=== PATIENT | female | born 1995 | race Caucasian/White ===

== ENCOUNTER → 2018-11-20 | Outpatient (REF) | payer OTHER ==
[2018-11-20 18:30] LABS: HEMATOCRIT 40.2 % (36.0-47.0); HEMOGLOBIN 13.3 g/dl (12.0-15.5); MEAN CORPUSCULAR HEMOGLOBIN 31.3 pg (27.0-33.0); MEAN CORPUSCULAR HGB CONC 33.1 g/dl (32.0-36.5); MEAN CORPUSCULAR VOLUME 94.6 fl (80.0-96.0); PLATELET COUNT, AUTOMATED 192 10^3/uL (150-450); RED BLOOD COUNT 4.25 10^6/uL (4.00-5.40); WHITE BLOOD COUNT 9.7 10^3/uL (4.0-10.0)
[2018-11-20 19:08] LABS: HCG, SERUM QUANTITATIVE 32952 MIU/ML; RUBELLA IgG QUALITATIVE IMMUNE (IMMUNE)
[2018-11-20 19:19] LABS: HIV 1&2 SCREEN CENTAUR NEGATIVE (NEGATIVE)
[2018-11-22 10:42] LABS: HEPATITIS C VIRUS ABY INDEX < 0.0 INDEX (<0.8)
== END ==
LOC: M LAB REF 16:40
PROVIDERS: ATTEND Obstetrics & Gynecology
DX: O36.80X0 Pregnancy with inconclusive fetal viability, not applicable or unspecified (principal); Z32.01 Encounter for pregnancy test, result positive; Z3A.00 Weeks of gestation of pregnancy not specified

== ENCOUNTER → 2019-01-01 | Outpatient (REF) | payer OTHER ==
[2019-01-01 21:11] LABS: CHLAMYDIA DNA AMPLIFICATION NEGATIVE (NEGATIVE); GC DNA AMPLIFICATION NEGATIVE (NEGATIVE)
== END ==
LOC: M LAB REF 17:09
PROVIDERS: ATTEND Advanced Practice Midwife
DX: Z34.82 Encounter for supervision of other normal pregnancy, second trimester (principal)

== ENCOUNTER → 2019-03-14 | Outpatient (CLI) | payer MEDICAID, OTHER ==
[2019-03-14 13:42] LABS: HEMATOCRIT 39.5 % (36.0-47.0); HEMOGLOBIN 13.3 g/dl (12.0-15.5); MEAN CORPUSCULAR HEMOGLOBIN 32.4 pg (27.0-33.0); MEAN CORPUSCULAR HGB CONC 33.7 g/dl (32.0-36.5); MEAN CORPUSCULAR VOLUME 96.1 fl (80.0-96.0); PLATELET COUNT, AUTOMATED 201 10^3/uL (150-450); RED BLOOD COUNT 4.11 10^6/uL (4.00-5.40); WHITE BLOOD COUNT 14.4 10^3/uL (4.0-10.0)
[2019-03-14 14:01] LABS: CREATININE,RANDOM URINE 80.7 MG/DL; TOTAL PROTEIN,RANDOM URINE 19.7 MG/DL (0.0-12.0)
[2019-03-14 14:02] LABS: ALT/SGPT 21 U/L (12-78); BILIRUBIN,TOTAL 0.2 MG/DL (0.2-1.0); CREATININE FOR GFR 0.38 MG/DL (0.55-1.30); GLOMERULAR FILTRATION RATE > 60.0 (>60); LDH LACTATE DEHYDROGENASE 203 U/L (84-246); URIC ACID 2.5 MG/DL (2.6-6.0)
== END ==
LOC: M SMT 10:08
PROVIDERS: ATTEND Advanced Practice Midwife
DX: O09.212 Supervision of pregnancy with history of pre-term labor, second trimester (principal); O16.3 Unspecified maternal hypertension, third trimester; Z3A.00 Weeks of gestation of pregnancy not specified

== ENCOUNTER → 2019-03-21 | Outpatient (REF) | payer MEDICAID, OTHER | LOC: M LAB REF 13:08 | PROVIDERS: ATTEND Advanced Practice Midwife | DX: O23.43 Unspecified infection of urinary tract in pregnancy, third trimester (principal) ==

== ENCOUNTER → 2019-04-02 | Outpatient (REF) | payer OTHER | LOC: M LAB REF 12:57 | PROVIDERS: ATTEND Advanced Practice Midwife | DX: Z34.83 Encounter for supervision of other normal pregnancy, third trimester (principal) ==

== ENCOUNTER → 2019-05-05 | Outpatient (REF) | payer OTHER, MEDICAID | LOC: M LAB REF 12:46 | PROVIDERS: ATTEND Advanced Practice Midwife | DX: O09.213 Supervision of pregnancy with history of pre-term labor, third trimester (principal) ==

== ENCOUNTER 2019-06-04 06:21 | Inpatient (IN) | payer OTHER ==
[~2019-06-04] VITALS: Ht 154.9 cm; Wt 78.0 kg
[~2019-06-04 06:21] MED LIST: PRENTAB55 PO
[2019-06-04] MEDS ORDERED: LR 1,000 ML IV SCH ×3 (06:45→10:30)
[2019-06-04] MEDS ORDERED: LR 80 ML IV ONE (06:45)
[2019-06-04] MEDS ORDERED: BICITRA 30ML SOLN UDC PO ONE (06:45)
[2019-06-04] MEDS ORDERED: OXYC1TAB23 PO (07:09)
[2019-06-04] MEDS ORDERED: IBUP-1022 PO (07:10)
[2019-06-04 07:46] LABS: HEMATOCRIT 34.7 % (36.0-47.0); HEMOGLOBIN 12.1 g/dl (12.0-15.5); MEAN CORPUSCULAR HEMOGLOBIN 31.6 pg (27.0-33.0); MEAN CORPUSCULAR HGB CONC 34.9 g/dl (32.0-36.5); MEAN CORPUSCULAR VOLUME 90.6 fl (80.0-96.0); PLATELET COUNT, AUTOMATED 186 10^3/uL (150-450); RED BLOOD COUNT 3.83 10^6/uL (4.00-5.40); WHITE BLOOD COUNT 17.3 10^3/uL (4.0-10.0)
[2019-06-04] MEDS ORDERED: MORPHINE PRES-FREE INJ 10 MG/10 ML VIAL (J2274) As Ordered ONE (08:33)
[2019-06-04] MEDS ORDERED: NALBUPHINE HCL 10 MG/ML AMP (J2300) IV PRN ×2 (08:48→10:30)
[2019-06-04] MEDS ORDERED: NALOXONE INJ 0.4 MG/1 ML VIAL (J2310) IV PRN ×2 (08:48)
[2019-06-04] MEDS ORDERED: METOCLOPRAMIDE INJ 10MG/2ML VIAL (J2765) IV PRN (08:48)
[2019-06-04] MEDS ORDERED: diphenhydrAMINE INJ 50MG/ML VIAL (J1200) IV PRN (08:48)
[2019-06-04] MEDS ORDERED: ONDANSETRON 4MG/2ML VIAL (J2405) IV PRN ×3 (08:48→10:30)
[2019-06-04] MEDS ORDERED: KETOROLAC 60 MG/2 ML VIAL (J1885) As Ordered ONE (09:29)
[2019-06-04] MEDS ORDERED: ONDANSETRON 4MG/2ML VIAL (J2405) As Ordered ONE (09:30)
[2019-06-04] MEDS ORDERED: OXYTOCIN DRIP 30 UNITS in APPROPRIATE DILUENT 1 EA IV SCH (09:43)
[2019-06-04] MEDS ORDERED: MEASLES,MUMPS,RUBELLA VACCINE INJ (MMR-II) (90707) SC SCH (09:45)
[2019-06-04] MEDS ORDERED: RHOGAM 300 MCG (1500 IU) INJ (J2790) IM SCH (09:45)
[2019-06-04] MEDS ORDERED: OXYTOCIN 30 UNITS IN 0.9% NaCl 500ML IV BAG (J2590) As Ordered ONE (09:54)
--- NOTE | 2019-06-04 10:08 | RO ---
DATE OF PROCEDURE: 06/04/2019 PREPROCEDURE DIAGNOSES: 38 and 3/7 week gestation. Prior section times three. Peritoneal window lower uterine segment. POSTPROCEDURE DIAGNOSES: 38 and 3/7 week gestation. Prior section times three. Peritoneal window lower uterine segment. PROCEDURE: Repeat low transverse section. Bilateral tubal ligation. SURGEON: Dr. Bryce Herman. CLOTHER IN: Eileen Martines CNM ANESTHESIA: Spinal. ESTIMATED BLOOD LOSS: 500 mL URINE OUTPUT: 100 mL FINDINGS: 2820-gram, 0-qopuj-9-ounce female with Apgars 9 and 10. Thin lower uterine segment. No peritoneal window present. Normal fallopian tubes and ovaries. DESCRIPTION OF PROCEDURE: The patient taken to the operating room where spinal anesthesia was induced. Prepped and draped in a sterile fashion in the supine position. A Krueger catheter was placed. A Pfannenstiel incision made with the scalpel and carried through to the fascia. The fascia was nicked and extended. The fascia was taken down to the level of the rectus muscle. The peritoneal cavity was entered and bladder flap was created. A curvilinear incision made in the lower uterine segment until bulging membranes were noted. This was extended manually in muscle layer from the verge. There was rupture of clear fluid. The was delivered in vertex position without difficulty. The cord was doubly clamped and cut. The infant was handed off the to the waiting nurses. The uterus was cleared of clots and debris. Uterine incision was closed with 0 Vicryl in a running locking fashion. A second imbricating layer of 0 Vicryl was placed. Attention was turned to the fallopian tubes. Each fallopian tube was grasped its mid portion with a Nahun. A window was created in the broad ligament. A free tie of #3-0 chromic was placed around the segment of tube in either side of the Nahun clamp and a knuckle of tube was excised bilaterally. Peritoneum was closed with #2-0 Vicryl in a running fashion, the fascia using 0 Vicryl. The deep layer was irrigated and closed with #2-0 chromic. The skin was closed with #4-0 Monocryl subcuticular sutures. Sponge, instrument and need counts were correct. Eileen Martines CNM assisted with all aspects of the procedure from the beginning to end. She helped create each layer of the incision. She helped expel the fetus. She helped close all subsequent layers.
[2019-06-04] MEDS ORDERED: fentaNYL 100 MCG/2 ML INJECTION (J3010) IV PRN (10:30)
[2019-06-04 12:00] VITALS: BP 116/64
[2019-06-04 12:30] VITALS: BP 117/63
[2019-06-04] MEDS ORDERED: SLF 3 ML SYR IV PRN (12:30)
[2019-06-04 13:35] VITALS: BP 121/70
[2019-06-04 14:30] VITALS: BP 123/59
[2019-06-04] MEDS: SLF 3 ML SYR IV SCH ×2 (14:39→22:12)
[2019-06-04] MEDS: KETOROLAC 30 MG/ML VIAL (J1885) IV SCH ×2 (16:11→22:10)
[2019-06-04] MEDS: NICOTINE 21MG/24HR 1 EA TRANSDERMAL TD SCH (16:11)
[2019-06-04 17:55] VITALS: BP 105/57
[2019-06-04] MEDS: PERCOCET 5MG/325MG TAB PO PRN (18:27)
[2019-06-04 22:20] VITALS: BP 109/58
[2019-06-05] MEDS: PERCOCET 5MG/325MG TAB PO PRN ×5 (02:10→22:31)
[2019-06-05 02:30] VITALS: BP 114/58
[2019-06-05] MEDS: KETOROLAC 30 MG/ML VIAL (J1885) IV SCH (04:48)
[2019-06-05 05:29] VITALS: BP 106/55
[2019-06-05] MEDS: SLF 3 ML SYR IV SCH ×3 (06:00→22:00)
[2019-06-05 06:54] LABS: HEMATOCRIT 28.9 % (36.0-47.0); MEAN CORPUSCULAR HEMOGLOBIN 31.8 pg (27.0-33.0); MEAN CORPUSCULAR HGB CONC 34.3 g/dl (32.0-36.5); MEAN CORPUSCULAR VOLUME 92.9 fl (80.0-96.0); PLATELET COUNT, AUTOMATED 171 10^3/uL (150-450); RED BLOOD COUNT 3.11 10^6/uL (4.00-5.40); WHITE BLOOD COUNT 12.8 10^3/uL (4.0-10.0)
[2019-06-05 06:55] LABS: HEMOGLOBIN 9.9 g/dl (12.0-15.5)
--- NOTE | 2019-06-05 07:16 | IPNPDOC ---
Text Note Date of Service The patient was seen on 06/05/19. NOTE Postop Day 1 s/p repeat LTCS; uncomplicated S: pain adequately controlled, lochia and bleeding decreasing, voiding spontaneously, ambulating without assistance, tolerating regular diet. O: vitals stable Heart: RRR, no murmurs Lungs: CTA bilaterally Abd: Fundus firm @ U, incision dressing dry and intact Ext: no edema, nontender, negative Cassidy's bilaterally A/P: 23 yo G4 now P3. day 1 s/p repeat LTCS. Hemodynamically stable, afebrile, adequate pain control. Recovering well. -Routine postoperative care and advancement. -Anticipate discharge Sunday VS,Fishbone, I+O VS, Fishbone, I+O Laboratory Tests 06/04/19 07:32 Red Blood Count 3.83 L, Mean Corpuscular Volume 90.6, Mean Corpuscular Hemoglobin 31.6, Mean Corpuscular Hemoglobin Concent 34.9, Red Cell Distribution Width 12.6 06/05/19 06:41 Red Blood Count 3.11 L, Mean Corpuscular Volume 92.9, Mean Corpuscular Hemoglobin 31.8, Mean Corpuscular Hemoglobin Concent 34.3, Red Cell Distribution Width 12.6 Vital Signs Date Time Temp Pulse Resp B/P (MAP) Pulse Ox O2 Delivery O2 Flow Rate FiO2 06/05/19 05:29 98.4 73 20 106/55 (72) 96 I&O- Last 24 Hours up to 6 AM 06/05/19 06:00 Intake Total 2100 ml Output Total 1750 ml Balance 350 ml GME ATTESTATION GME ATTESTATION My faculty preceptor for this patient encounter was physically present during the encounter and was fully available. All aspects of the patient interview, examination, medical decision making process, and medical care plan development were reviewed and approved by the faculty preceptor. The faculty preceptor is aware and concurs with the plan as stated in the body of this note and will attest to such by his/her cosignature. BERLIN PFEIFFER DO Jun 05, 2019 07:16
[2019-06-05] MEDS: NICOTINE 21MG/24HR 1 EA TRANSDERMAL TD SCH (09:25)
[2019-06-05] MEDS: PRENATAL VITAMINS CHEWABLE TABLET PO SCH (09:25)
[2019-06-05 10:00] VITALS: BP 117/60
[2019-06-05] MEDS: IBUPROFEN 800 MG TAB PO SCH ×2 (11:58→19:51)
[2019-06-05 14:00] VITALS: BP 120/58
[2019-06-05 18:00] VITALS: BP 111/58
[2019-06-05] MEDS ORDERED: MOM 30ML SUSPENSION UDC PO PRN (21:00)
[2019-06-05] MEDS: DOCUSATE SODIUM 100 MG CAP PO SCH (21:15)
[2019-06-06] MEDS: IBUPROFEN 800 MG TAB PO SCH (03:08)
[2019-06-06] MEDS: SLF 3 ML SYR IV SCH (05:54)
[2019-06-06] MEDS: PERCOCET 5MG/325MG TAB PO PRN (06:00)
[2019-06-06 06:02] VITALS: BP 109/58
[2019-06-06] MEDS: PRENATAL VITAMINS CHEWABLE TABLET PO SCH (09:00)
[2019-06-06] MEDS: NICOTINE 21MG/24HR 1 EA TRANSDERMAL TD SCH (09:00)
[2019-06-06] MEDS: DOCUSATE SODIUM 100 MG CAP PO SCH (09:00)
--- NOTE | 2019-06-07 09:03 | DSES ---
DATE OF ADMISSION: 06/04/2019 DATE OF DISCHARGE: 06/06/2019 DISCHARGE DIAGNOSIS: Repeat low transverse section, satisfied parity PROCEDURES PERFORMED WHILE IN HOSPITAL: 1. Repeat section. 2. Spinal anesthesia. 3. Bilateral tubal ligation. HISTORY OF PRESENT ILLNESS: Ms. Marcelina More is a 24-year-old 4 now para 3 who presented to labor and delivery for a repeat low transverse section and bilateral tubal ligation at 38 weeks 3 days gestation. She underwent an uncomplicated repeat low transverse section productive of a live born female, scores 9 and 10. Weight was 2820 grams or 6 pounds 3 ounces. Estimated blood loss was 500 mL. Ms. Marcelina More did well postoperatively and by postoperative day 2 had met all discharge criteria. She was discharged home in stable condition. PHYSICAL EXAMINATION: On day of discharge, her vital signs were stable. She was afebrile. GENERAL APPEARANCE: Well appearing, no acute distress. ABDOMEN: Soft, appropriately tender fundus firm below of umbilicus. INCISION: Dressing is dry and intact. EXTREMITIES: Negative for calf tenderness. DISCHARGE INSTRUCTIONS: 1. She was instructed to remain on pelvic rest for 6 weeks. 2. To remove her dressing in 5-7 days. 3. Report severe pain, heavy vaginal bleeding, fever or incisional issues. DISCHARGE MEDICATIONS: - ibuprofen - Percocet FOLLOWUP: Followup at [facility] in 2 weeks for incision check.
== END 2019-06-06 11:30 | disposition home or self-care (01) | DRG 540 ==
LOC: M LDI 06:21 → M OBS 12:04
PROVIDERS: ADMIT Specialist; ATTEND Specialist
PROC: 0UB70ZZ Excision of Bilateral Fallopian Tubes, Open Approach (ICD-10-PCS; 2019-06-04)
PROC: 10D00Z1 Extraction of Products of Conception, Low, Open Approach (ICD-10-PCS; principal; 2019-06-04 08:30)
DX: O34.211 Maternal care for low transverse scar from previous cesarean delivery (principal); Z30.2 Encounter for sterilization; Z37.0 Single live birth; Z3A.38 38 weeks gestation of pregnancy